=== PATIENT | male | born 1945 | race Caucasian/White ===

== ENCOUNTER 2017-03-31 09:03 | Day surgery (SDC) | payer MEDICARE ==
[~2017-03-31] VITALS: Ht 185.4 cm; Wt 90.7 kg
[~2017-03-31 09:03] MED LIST: ASPI-973 PO; CALC-243 PO; FLAX100038 PO; GLUC100016 PO; SIMV20TA4 PO; Sodium Chloride LOK Flush 10 mL Syringe IV PRN; fentaNYL-PF 50 mCg/mL 2 mL Inj IVPUSH PRN
[2017-03-31 09:20] VITALS: BP 129/78; PULSE 87; RESP 16; O2SAT 97
[2017-03-31] MEDS: 0.9% Sodium Chloride 1,000 ML IV SCH ×3 (09:27→10:50)
[2017-03-31 11:04] VITALS: BP 127/73; PULSE 79; RESP 16; O2SAT 96
[2017-03-31 11:15] VITALS: BP 121/76; PULSE 75; RESP 15; O2SAT 100
--- NOTE | 2017-03-31 13:14 | ENDO ---
[address] [address] ENDOSCOPY PROCEDURE PATIENT: CHRISTINE NUÑEZ : 1945 MR#: [id number] ADMIT: 03/31/2017 JOB ID: [id number] DATE OF SERVICE: 03/31/2017 PREOPERATIVE DIAGNOSIS: Personal history of metachronous colon cancers. POSTOPERATIVE DIAGNOSIS: Diverticulosis. PROCEDURE: Colonoscopy to ileocolonic anastomosis. SURGEON: Zhang Fair MD INDICATIONS: The patient is a 71-year-old man who in 2008 had a stage II right colon cancer. The next year, he was found to have a malignant flat polyp in the transverse colon, and he underwent a transverse colectomy. He is now here for screening colonoscopy. His last two colonoscopies have shown no polyps or cancers. FINDINGS: He had diffuse diverticulosis. No polyps were identified. Retroflexed views of the rectum were normal. He had a fair prep. PROCEDURE IN DETAIL: The procedure and sedation plan was discussed with the patient and nursing staff, and a procedural time-out was held. A digital rectal exam was performed. He received 2 mg of Versed and 50 mcg of fentanyl. The Olympus PCFH-180AL video colonoscope was passed transanally, advanced to the ileocolonic anastomosis which was widely patent and easily identified. Suction and irrigation were used as the scope was withdrawn but there were fecaliths. Retroflexed views of the rectum were normal. IMPRESSION: 1. History of two metachronous colon cancers. 2. Sigmoid diverticulosis. RECOMMENDATIONS: Colonoscopy in three years. SOY
== END 2017-03-31 23:59 | disposition home or self-care (01) ==
LOC: END 09:03
PROVIDERS: ATTEND Surgery
DX: Z12.11 Encounter for screening for malignant neoplasm of colon (principal); K57.30 Diverticulosis of large intestine without perforation or abscess without bleeding; K63.89 Other specified diseases of intestine; Z85.038 Personal history of other malignant neoplasm of large intestine; Z79.82 Long term (current) use of aspirin; Z79.899 Other long term (current) drug therapy
CPT/HCPCS: G0105; G0500; J2250; J3010; J7030